=== PATIENT | male | born 1985 | race African-American/Black ===

== ENCOUNTER 2018-10-18 06:46 | Emergency (ER) | payer MEDICAID, MEDICARE ==
[~2018-10-18] VITALS: Ht 177.8 cm; Wt 125.0 kg
[2018-10-18] MEDS ORDERED: KETOROLAC 60MG/2ML VIAL IM ONE (07:45)
[2018-10-18] MEDS ORDERED: HYDROCODONE/ACETAMINOPHEN 5/325MG TABLET PO ONE (09:30)
[2018-10-18 11:26] VITALS: BP 115/70
== END 2018-10-18 11:35 | disposition home or self-care (01) ==
LOC: ER 07:37
DX: M10.9 Gout, unspecified (principal)
CPT/HCPCS: 96372; 99283; J1885

== ENCOUNTER 2023-10-11 10:38 | Emergency (ER) | payer MEDICAID, MEDICARE ==
[~2023-10-11] VITALS: Ht 177.8 cm; Wt 136.0 kg
[2023-10-11 10:47] VITALS: BP 146/87; O2SAT 99
[2023-10-11] MEDS ORDERED: MED4 MT (12:26)
[2023-10-11] MEDS ORDERED: DEXAMETHASONE 4MG/ML 1ML VIAL IM SCH (12:30)
[2023-10-11] MEDS ORDERED: IBUP-2030 MT (13:37)
[2023-10-11] MEDS ORDERED: OMEP40CA20 MT (13:39)
[2023-10-11 13:55] VITALS: PULSE 105; RESP 17; TEMP 97.9
== END 2023-10-11 13:58 | disposition home or self-care (01) ==
LOC: ER 10:38
DX: M10.9 Gout, unspecified (principal)
CPT/HCPCS: 99283; 96372; J1100